=== PATIENT | female | born 1995 | race Caucasian/White ===

== ENCOUNTER 2018-06-18 01:19 | Emergency (ER) | payer OTHER ==
--- NOTE | 2018-06-18 01:21 | ER Report ---
History and Physical Time Seen By MD: 01:21 HPI/ROS CHIEF COMPLAINT: Difficulty breathing HISTORY OF PRESENT ILLNESS: 22-year-old female presents to the ER with severe difficulty breathing. She has a history of asthma. It's not been this bad in a long time. Patient has 1-2-word dyspnea. Patient appears to have increased wo rk of breathing. She has prolonged expiration. She slightly pale appearing. She's not diaphoretic. Patient admits she was cleaning animal cages which is an allergic trigger for her asthma. She's used her inhaled steroids today as prescribed and has tried her rescue inhaler without improvement. REVIEW OF SYSTEMS: Respiratory: As above Cardiovascular: No chest pain, no palpitations. Gastrointestinal: No vomiting, no abdominal pain. Musculoskeletal: No back pain. Allergies: Coded Allergies: No Known Drug Allergies (Unverified , 06/18/18) Home Meds Active Scripts Prednisone (PREDNISONE) 20 Mg Tablet, 20 MG PO QDAY, #9 2 by mouth daily for 3 days then 1 by mouth daily for 3 days Prov:HUA CASTELLANO DO 06/18/18 Reported Medications Albuterol Sulfate 0.083% (ALBUTEROL SULFATE 0.083%) 2.5 Mg/3 Ml Vial.neb, 2.5 MG INH Q4-6H, INH 06/18/18 Reviewed Nurses Notes: Yes Old Medical Records Reviewed: Yes Constitutional Vital Sign - Last 24 Hours 06/18/18 06/18/18 06/18/18 06/18/18 01:23 01:30 01:34 01:35 Temp 97.4 Pulse 127 114 109 Resp 30 22 B/P (MAP) 129/107 (114) Pulse Ox 90 87 O2 Delivery Room Air 06/18/18 06/18/18 06/18/18 06/18/18 01:35 02:00 02:04 02:19 Pulse 124 114 B/P (MAP) 133/76 (95) Pulse Ox 92 88 89 O2 Delivery Room Air 06/18/18 06/18/18 06/18/18 06/18/18 02:30 02:34 02:49 02:52 Pulse 115 115 ??? B/P (MAP) 137/83 (101) Pulse Ox 89 89 87 06/18/18 06/18/18 06/18/18 06/18/18 02:53 02:53 02:57 03:00 Pulse 106 115 Resp 20 B/P (MAP) 126/72 (90) Pulse Ox 90 97 O2 Delivery Room Air 06/18/18 03:02 Pulse 118 Pulse Ox 89 Physical Exam Vital signs stable, afebrile, tachypnea, respiratory rate of 30, pulse ox 90 b orderline General Appearance: The patient is alert, has no immediate need for airway protection and no current signs of toxicity. Moderate respiratory distress, increased work of breathing, prolonged expiration noted HEENT: Pupils equal and round no injection. TMs normal,, oropharynx with gross erythema, no exudate or petechiae Respiratory: Gross expiratory wheezing in all lung romero, poor inspiratory effort Cardiac: regular rate and rhythm Gastrointestinal: Abdomen is soft and non tender, no masses, bowel sounds normal. Musculoskeletal: Neck: Neck is supple and non tender. No lymphadenopathy Extremities have full range of motion and are non tender. No edema, no calf tenderness Skin: No rashes or lesions. DIFFERENTIAL DIAGNOSIS: After history and physical exam differential diagnosis was considered for shortness of breath including but not limited to pulmonary infectious process, COPD, asthma, pulmonary embolus and congestive heart failure. Medical Decision Making ED Course/Re-evaluation ED Course Patient was admitted to an examination room. H&P was done. The differential diagnosis was considered. On conical examination, patient appears really quite tight on arrival. She has extreme work of breathing. She has extremely prolonged expiratory phase. She is grossly [place] wheezing throughout her lung romero. Her saturations are hovering in the upper 80s. She has tachypnea. She is aggressively treated with a series of 3 albuterol nebs combined into one. She's given prednisone 60 mg by mouth. After 45 minutes. On reassessment, she is feeling much better. Still has some mild work of breathing. There still is faint expiratory wheezing on her lung romero. We will observe her for 30 minutes and then attempt a last neb. Which will likely clear her and she'll be able to go home. She'll be discharged home on a prednisone taper 40 mg 3, 20, motor grams 3. Patient's advised follow-up with her primary care doctor in [place], [place]. Upon returning home. Decision to Disposition Date: Jun 18, 2018 Decision to Disposition Time: 02:04 Depart Departure Latest Vital Signs Vital Signs Date Time Temp Pulse Resp B/P (MAP) Pulse Ox O2 Delivery O2 Flow Rate FiO2 06/18/18 03:02 118 89 06/18/18 03:00 126/72 (90) 06/18/18 02:53 20 06/18/18 02:53 Room Air 06/18/18 01:23 97.4 Impression: Primary Impression: Asthma exacerbation Additional Impression: Viral syndrome Condition: Improved Disposition: HOME OR SELF-CARE Referrals: SHANKAR NOVAK MD, FARRUKH MD New Scripts Prednisone (PREDNISONE) 20 Mg Tablet 20 MG PO QDAY, #9 2 by mouth daily for 3 days then 1 by mouth daily for 3 days Prov: HUA CASTELLANO DO 06/18/18 Patient Instructions: Asthma (ED) Additional Instructions: Follow-up with your primary care doctor next week back in [place], [place] Problem Qualifiers Primary Impression: Asthma exacerbation Asthma severity: mild Asthma persistence: intermittent Qualified Codes: J45.21 - Mild intermittent asthma with (acute) exacerbation HUA CASTELLANO DO Jun 18, 2018 01:21
[2018-06-18] MEDS ORDERED: predniSONE 20 MG TAB PO ONE (01:25)
[2018-06-18] MEDS ORDERED: ALBUTEROL 2.5 MG/3 ML NEB NEB ONE (01:25)
[2018-06-18] MEDS ORDERED: ALBU2.5V36 INH (01:50)
[2018-06-18] MEDS ORDERED: ALBUTEROL/IPRATROPIUM 3 ML NEB NEB ONE (02:50)
[2018-06-18 03:00] VITALS: BP 126/72
[2018-06-18] MEDS ORDERED: PRED20TA6 PO (03:05)
== END 2018-06-18 03:13 | disposition home or self-care (01) ==
LOC: ER 01:37
DX: J45.21 Mild intermittent asthma with (acute) exacerbation (principal); B34.9 Viral infection, unspecified
CPT/HCPCS: 94640; 99284; J7512; J7613; J7620